=== PATIENT | female | born 1940 | race Hispanic/Latino ===

== ENCOUNTER → 2017-10-02 | Outpatient (CLI) | payer MEDICARE ==
[~2017-10-02] MED LIST: COUMADIN3 MG PO; FUROSEMIDE40 MG PO; IPRATROPIU0.2 MG/1 M NEB; LIDODERM PATCH1 EA; NITROSTAT0.4 MG SL; NORCO 7.5-3251 EACH PO; PAXIL10 MG PO; PENTOXIFYLLINE400 MG PO; POTASSIUM CHLO20 ME1 PO; SINGULAIR5 MG PO; TESSALON PERLE100 M1; TOVIAZ8 MG PO; ULTRAM50 MG PO; Z.0.BENICAR HCT 201 PO; Z.0.GLUCOSAMINE1000; Z.0.HYDRALAZINE HCL5 PO; Z.0.NEXIUM40 MG PO; Z.0.NITROGLYCERIN0.4 SL; Z.0.PLAVIX75 MG PO; Z.0.SINGULAIR10 MG PO; Z.0.TOPROL XL100 MG PO; Z.0.VESICARE10 MG PO; Z.0.VICODIN 5-5001 E PO; Z.0.ZOCOR40 MG PO; Z.1.LEVOTHYROXINE100 PO; [UNRECOGNIZED DRUG - OTHER] PO
[2017-10-02 13:12] LABS: BASOPHILS # (AUTO) 0.1 (0.0-0.1); BASOPHILS % 0.5 % (0.0-1.0); EOSINOPHILS # (AUTO) 0.6 (0.0-0.4); EOSINOPHILS % 5.8 % (0.0-6.0); HEMATOCRIT 37.4 % (34.2-44.1); HEMOGLOBIN 11.6 g/dL (12.0-16.0); LYMPHOCYTES # (AUTO) 2.5 (1.0-3.2); LYMPHOCYTES % 23.3 % (18.0-39.1); MEAN CORPUSCULAR HEMOGLOBIN 27.2 pg (28-32); MEAN CORPUSCULAR VOLUME 87.6 fL (81-99); MONOCYTES # (AUTO) 0.6 (0.2-0.8); MONOCYTES % 5.2 % (4.4-11.3); NEUTROPHILS # (AUTO) 7.1 (2.1-6.9); NEUTROPHILS % 64.7 % (38.7-80.0); PLATELET COUNT 192 x10e3/uL (140-360); RED BLOOD COUNT 4.27 x10e6/uL (3.6-5.1)
[2017-10-02 14:04] LABS: ERYTHROCYTE SEDIMENTATION RATE 32 mm/hr (0-20)
== END ==
LOC: LAB 12:45
PROVIDERS: ATTEND Specialist
DX: S72.92XA Unspecified fracture of left femur, initial encounter for closed fracture (principal)
CPT/HCPCS: 36415; 85025; 85651; 86140

== ENCOUNTER → 2017-10-17 | Day surgery (SDC) | payer MEDICARE ==
[2017-10-13 12:26] LABS: BASOPHILS # (AUTO) 0.1 (0.0-0.1); BASOPHILS % 0.5 % (0.0-1.0); EOSINOPHILS # (AUTO) 0.9 (0.0-0.4); EOSINOPHILS % 8.6 % (0.0-6.0); HEMATOCRIT 36.3 % (34.2-44.1); HEMOGLOBIN 11.4 g/dL (12.0-16.0); LYMPHOCYTES # (AUTO) 2.7 (1.0-3.2); LYMPHOCYTES % 26.2 % (18.0-39.1); MEAN CORPUSCULAR HEMOGLOBIN 27.5 pg (28-32); MEAN CORPUSCULAR HGB CONC 31.4 g/dL (31-35); MEAN CORPUSCULAR VOLUME 87.7 fL (81-99); MONOCYTES # (AUTO) 0.6 (0.2-0.8); MONOCYTES % 6.1 % (4.4-11.3); NEUTROPHILS # (AUTO) 6.1 (2.1-6.9); NEUTROPHILS % 58.3 % (38.7-80.0); PLATELET COUNT 187 x10e3/uL (140-360); RED BLOOD COUNT 4.14 x10e6/uL (3.6-5.1)
--- NOTE | 2017-10-13 12:52 | Diagnostic Imaging Report ---
PROCEDURE: Frontal and lateral views of the chest. COMPARISON: Chest 2 views 02/12/2014. INDICATIONS: PREOPERATIVE CHEST XRAY FOR HIP SURGERY FINDINGS: Lines/tubes: Left chest cardiac device with leads projecting over the expected regions of the right atrium and ventricle. Lungs: The lungs are well inflated and clear. There is no evidence of pneumonia or pulmonary edema. Metallic coils are present in the right midlung region. Pleura: There is no pleural effusion or pneumothorax. Heart and mediastinum: The heart and the mediastinum are normal. Bones: No acute bony abnormality. Median sternotomy wires. IMPRESSION: No acute radiographic abnormality. Dictated by: Arturo Barillas M.D. on 10/13/2017 at 13:01 Electronically approved by: Arturo Barillas M.D. on 10/13/2017 at 13:01
[~2017-10-17] MED LIST changes: +ALBUTEROL0.63 MG/3 NEB; +ASPIRIN325 MG PO; +ATORVASTATIN CA10 MG PO; +BENADRYL25 M1 PO; +BUPIVACAINE HCL 0.5% 10ML MPF VIAL INJ ONE; +FENTANYL CITRATE/PF 100MCG/2 ML INJ ONE; +IOPAMIDOL 200 MG/ML 20 ML VIAL IT ONE; +LEVSIN0.125 MG PO; +LIDOCAINE HCL 1% LOCAL INJ 20 ML VIAL ONE; +LIDOCAINE HCL 2% LOCAL INJ 5 ML SDV VIAL INJ ONE; +MELOXICAM7.5 MG PO; +MIDAZOLAM HCL 2 MG/2 ML VIAL ONE; +MS CONTIN30 MG PO; +NORCO 10-325 T1 EACH PO; +OXYBUTYNIN CHLOR5 M1 PO; +PROPOFOL IV EMULSION 10 MG/ML 20 ML VIAL ONE; +SINGULAIR10 MG PO; +TRIAMCINOLONE ACET 40 MG/ML VIAL ONE; +VESICARE5 MG PO
--- OUTSIDE RECORDS SUMMARY | 2017-10-17 05:55 | XMS REPORT ---
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 Allergies, Adverse Reactions, Alerts This patient has no known allergies or adverse reactions. Medications This patient has no known medications. Results Test Description Test Time Test Comments Text Results Atomic Results Result Comments CHEST 2 VIEWS [place] [address] Patient Name: CONNOR ROBERTSON MR #: [id number] : 1940 Age/Sex: 77/F Req #: [id number] Adm Physician: Ordered by: CHER JOSÉ MD Report #: [id number] Location: OR Room/Bed: Procedure: [id number] DX/CHEST 2 VIEWS Exam Date: 10/13/17 Exam Time: 1155 REPORT STATUS: Signed PROCEDURE: Frontal and lateral views of the chest. COMPARISON: Chest 2 views 02/12/2014. INDICATIONS: PREOPERATIVE CHEST XRAY FOR HIP SURGERY FINDINGS: Lines/tubes: Left chest cardiac device with leads projecting over the expected regions of the right atrium and ventricle. Lungs: The lungs are well inflated and clear. There is no evidence of pneumonia or pulmonary edema. Metallic coils are present in the right midlung region. Pleura: There is no pleural effusion or pneumothorax. Heart and mediastinum: The heart and the mediastinum are normal. Bones: No acute bony abnormality. Median sternotomy wires. IMPRESSION: No acute radiographic abnormality. Dictated by: Debby Machado M.D. on 10/13/2017 at 13:01 Electronically approved by: Debby Machado M.D. on 10/13/2017 at 13:01 Dictated By: DEBBY MACHADO MD [id number] COPY TO: CHER JOSÉ MD
--- OUTSIDE RECORDS SUMMARY | 2017-10-17 05:55 | XMS REPORT | Clinical Summary ---
Author Author [facility] Organization [facility] Address Unknown Phone Unavailable Care Team Providers Care Civil Engineering Director Name Role Phone AttarMatthew MD PCP Allergies Active Allergy Reactions Severity Noted Date Comments Ponce Inhibitors Anaphylaxis High 11/22/2016 Clindamycin GI Intolerance 11/22/2016 nousea Fenofibrate Itching 11/22/2016 Terbinafine Itching 11/22/2016 Current Medications Prescription Sig. Disp. Refills Start End Date Status Date hydrALAZINE (APRESOLINE) Take 25 mg by mouth 3 Active 25 MG tablet (three) times a day. esomeprazole (NexIUM) 40 Take 40 mg by mouth 2 Active MG capsule (two) times a day. levothyroxine (SYNTHROID, Take 112 mcg by mouth Active LEVOXYL) 112 mcg tablet every morning. montelukast (SINGULAIR) Take 10 mg by mouth Active 10 mg tablet nightly. solifenacin (VESICARE) 10 Take 10 mg by mouth Active MG tablet daily. oxybutynin (DITROPAN) 5 Take 5 mg by mouth daily. Active MG tablet atorvastatin (LIPITOR) 10 Take 10 mg by mouth Active MG tablet daily. meloxicam (MOBIC) 15 mg Take 15 mg by mouth Active tablet daily. albuterol sulfate Take 2.5 mg by Active (PROVENTIL) 2.5 mg/0.5 mL nebulization 3 (three) solution for nebulization times a day as needed. morPHINE (MS CONTIN) 30 Take 30 mg by mouth 2 Active MG 12 hr tablet (two) times a day. HYDROcodone-acetaminophen Take 1 tablet by mouth Active (NORCO) 10-325 mg per every 6 (six) hours as tablet needed for moderate pain. hyoscyamine sulfate 0.125 Take 1 tablet by mouth Active mg tablet,disintegrating daily as needed. diphenhydrAMINE (BENADRYL Take 50 mg by mouth Active ALLERGY) 25 mg tablet nightly as needed for allergies or sleep. metoprolol tartrate Take 25 mg by mouth 2 Active (LOPRESSOR) 25 mg tablet (two) times a day. gabapentin (NEURONTIN) Take 100 mg by mouth 3 Active 100 mg capsule (three) times a day. traZODone (DESYREL) 50 MG Take 50 mg by mouth Active tablet nightly as needed for sleep. lactulose 10 gram/15 mL Take 20 g by mouth 3 Active (15 mL) solution (three) times a day. potassium chloride Take 20 mEq by mouth Active (K-DUR) 20 MEQ CR tablet daily. docusate sodium (COLACE) Take 100 mg by mouth 3 Active 100 MG capsule (three) times a day. metoprolol succinate XL Take 25 mg by mouth 2 11/24/19 Discontin (TOPROL-XL) 25 mg 24 hr (two) times a day. 17 ued tablet docusate sodium (COLACE) Take 1 capsule (100 mg 60 capsule 0 11/25/19 12/25/19 100 MG capsule total) by mouth 2 (two) 17 17 times a day for 30 days. lactulose 20 gram/30 mL Take 30 mL (20 g total) 2700 mL 0 11/25/19 12/25/19 solution by mouth 3 (three) times 17 17 a day for 30 days. polyethylene glycol Take 17 g by mouth daily 30 packet 0 11/25/19 (MIRALAX) 17 gram packet for 30 days. 17 17 diphenhydramine-zinc Apply topically 2 (two) 28.4 g 0 01/07/2002/05 acetate 2-0.1 % cream times a day as needed for 17 17 itching for up to 30 days. aspirin (ECOTRIN) 81 MG Take 1 tablet (81 mg 30 tablet 3 01/07/20 enteric coated tablet total) by mouth daily for 17 17 30 days. minocycline (MINOCIN) 100 Take 1 capsule (100 mg 20 capsule 0 01/17/20 MG capsule total) by mouth 2 (two) 17 17 times a day for 10 days. Active Problems Problem Noted Date Cellulitis of left lower extremity 01/02/2017 Essential hypertension 01/02/2017 PVD (peripheral vascular disease) 01/02/2017 Constipation 11/24/2016 Hyponatremia 11/23/2016 Constipation 11/23/2016 CAD (coronary artery disease) 11/23/2016 Abdominal pain 11/23/2016 Encounters Date Type Specialty Care Team Description 01/10/2017 Telephone Cardiology Domonique Sellers 01/01/2017 Hospital Cardiology Dilcia Sears MD Cellulitis of left lower - Encounter Manny Esposito O. Sr., extremity (Primary 01/06/2017 MD Dx);Multiple contusions;Coronary artery disease involving [place] coronary artery of [place] heart without angina pectoris;Essential hypertension;PVD (peripheral vascular disease) 11/22/2016 Emergency General Internal Medicine Elzbieta Cavazos MD Hyponatremia (Primary - Manny Esposito O. Sr., Dx);Left lower quadrant 11/24/2016 MD pain;Hip pain, acute, left;Left upper quadrant pain after 10/16/2016 Social History Tobacco Use Types Packs/Day Years Used Date Never Smoker Alcohol Use Drinks/Week oz/Week Comments No Sex Assigned at Date Recorded Not on file Last Filed Vital Signs Vital Sign Reading Time Taken Blood Pressure 116/54 01/06/2017 7:51 AM CDT Pulse 62 01/06/2017 2:21 PM CDT Temperature 36.1 C (96.9 F) 01/06/2017 7:51 AM CDT Respiratory Rate 17 01/06/2017 2:21 PM CDT Oxygen Saturation 94% 01/06/2017 9:00 AM CDT Inhaled Oxygen - - Concentration Weight 87.6 kg (193 lb 1.6 oz) 01/06/2017 4:25 AM CDT Height 157.5 cm (5' 2") 01/02/2017 5:00 AM CDT Body Mass Index 35.32 01/06/2017 4:25 AM CDT Plan of Treatment Health Maintenance Due Date Last Done Comments MAMMOGRAM 1992 ZOSTER VACCINE 2002 PNEUMOCOCCAL 2007 POLYSACCHARIDE VACCINE AGE 65 AND OVER PNEUMOCOCCAL-13 2007 INFLUENZA VACCINE 04/11/2017 Results * CBC with platelet and differential (01/06/2017 5:51 AM) Only the most recent of 7 results within the time period is included. Component Value Ref Range WBC 8.93 4.50 - 11.00 k/uL RBC 3.54 (L) 4.20 - 5.50 m/uL HGB 10.5 (L) 12.0 - 16.0 g/dL HCT 33.5 (L) 37.0 - 47.0 % MCV 94.6 82.0 - 100.0 fL MCH 29.7 27.0 - 34.0 pg MCHC 31.3 31.0 - 37.0 g/dL RDW - SD 51.4 37.0 - 55.0 fL MPV 10.2 8.8 - 13.2 fL Platelet count 200 150 - 400 k/uL Nucleated RBC 0.00 /100 WBC Neutrophils 68.9 39.0 - 69.0 % Lymphocytes 17.1 (L) 25.0 - 45.0 % Monocytes 8.3 0.0 - 10.0 % Eosinophils 4.7 0.0 - 5.0 % Basophils 0.6 0.0 - 1.0 % Immature granulocytes 0.4Comment: "Immature granulocytes" 0.0 - 1.0 % (promyelocytes, myelocytes, metamyelocytes) Specimen Performing Laboratory Blood [facility] DEPARTMENT OF PATHOLOGY AND GENOMIC MEDICINE [address] [place] [id number] * Estimated GFR (01/06/2017 4:00 AM) Only the most recent of 7 results within the time period is included. Component Value Ref Range GFR Non Af Amer 70 mL/min/1.73 m2 GFR Af Amer 85 mL/min/1.73 m2 Comment: Chronic kidney disease: <60 mL/min/1.73m2 Kidney failure: <15 mL/min/1.73m2 The estimated GFR is calculated from the IDMS-traceable Modification of Diet in Renal Disease Equation. The accuracy of the calculation is poor when the creatinine is normal. Calculated values >90 mL/min/1.73m2 are not reported. This equation has not been validated in children (<18 years), women, the elderly (>70 years), or ethnic groups other than Caucasians and Americans. Specimen Performing Laboratory Plasma specimen [facility] DEPARTMENT OF PATHOLOGY AND GENOMIC MEDICINE [address] [place] [id number] * Basic metabolic panel (01/06/2017 4:00 AM) Only the most recent of 6 results within the time period is included. Component Value Ref Range Sodium 133 (L) 135 - 148 mEq/L Potassium 4.3 3.5 - 5.0 mEq/L Chloride 99 98 - 112 mEq/L CO2 22 (L) 24 - 31 mEq/L Anion gap 12 7 - 15 mEq/L Comment: Starting from December , anion gap calculation no longer incorporates potassium. Please note the change. BUN 27 (H) 8 - 23 mg/dL Creatinine 0.8 0.5 - 0.9 mg/dL Glucose 91 65 - 99 mg/dL Calcium 9.2 8.8 - 10.2 mg/dL Specimen Performing Laboratory Plasma specimen [facility] DEPARTMENT OF PATHOLOGY AND GENOMIC MEDICINE [address] [address] * Thyroid stimulating hormone (01/02/2017 4:00 AM) Only the most recent of 2 results within the time period is included. Component Value Ref Range TSH 1.40 0.27 - 4.20 uIU/mL Specimen Performing Laboratory Plasma specimen [facility] DEPARTMENT OF PATHOLOGY AND [address] [address] * T4, free (01/02/2017 4:00 AM) Only the most recent of 2 results within the time period is included. Component Value Ref Range T4, free 1.3 0.9 - 1.7 ng/dL Specimen Performing Laboratory Plasma specimen [facility] DEPARTMENT OF PATHOLOGY AND [address] [address] * Lipid panel (01/02/2017 4:00 AM) Only the most recent of 2 results within the time period is included. Component Value Ref Range Cholesterol 153 <200 mg/dL Triglycerides 69 <150 mg/dL HDL cholesterol 48 >40 mg/dL LDL cholesterol 93Comment: Result obtained by direct LDL <100 mg/dL measurement Lipid panel SeeBelow interpretation Comment: Total Cholesterol (mg/dL) <200 Desirable 200-239 Borderline-high >=240 High Triglycerides (mg/dL) <150 Normal 150-199 Borderline-high 200-499 High >=500 Very high HDL Cholesterol (mg/dL) <40 Low (male) <40 Low (female) LDL Cholesterol (mg/dL) <100 Optimal 100-129 Near or above optimal 130-159 Borderline-high 160-189 High >=190 Very high Risk Catergories that modify LDL goals. Risk Catergories LDL goal (mg/dL) CHD and CHD risk equivalent <100 (10-year risk >20%) Multiple (2+) risk factors <130 (10-year risk=<20%) 0-1 risk factors <160 (<10-year risk) Defining levels of lipids in metabolic syndrome Triglycerides >=150 mg/dL HDL Cholesterol Men <40 mg/dL Women <40 mg/dL Non-HDL cholesterol is a second target for therapy in persons with high triglycerides (>=200 mg/dL) Specimen Performing Laboratory Plasma specimen [facility] DEPARTMENT OF PATHOLOGY AND GENOMIC MEDICINE [address] [place] [address] * CT Pelvis Wo Contrast (01/02/2017 12:09 AM) Specimen Performing Laboratory [facility] [address] [place] [address] PELVIS WO CONTRAST CLINICAL HISTORY:left hip pain TECHNIQUE: Multidetector CT examination of the pelvis was performed following without contrast with multiplanar reconstructions. CT imaging was performed with iterative reconstruction technique and/or automated exposure control to reduce radiation dose. COMPARISON:Left hip radiographs performed on 01/01/2017. FINDINGS: There is no acute fracture or dislocation. The bones are demineralized. There is severe left and moderate right hip osteoarthrosis. There are degenerative changes of the pubic symphysis, both sacroiliac joints, and the lower lumbar spine. There is transitional anatomy of the lumbosacral junction. The partially visualized intra-abdominal and pelvic contents are without acute abnormality. The uterus is not visualized, compatible with prior hysterectomy. There is calcified atherosclerotic disease of the abdominal aorta and iliac arteries. There are bilateral gluteal injection granulomas. IMPRESSION: No acute fracture or dislocation. [id number] Procedure Note Interface, Radiology Results Incoming - 01/02/2017 1:[address] PELVIS WO CONTRAST CLINICAL HISTORY: left hip pain TECHNIQUE: Multidetector CT examination of the pelvis was performed following without contrast with multiplanar reconstructions. CT imaging was performed with iterative reconstruction technique and/or automated exposure control to reduce radiation dose. COMPARISON: Left hip radiographs performed on 01/01/2017. FINDINGS: There is no acute fracture or dislocation. The bones are demineralized. There is severe left and moderate right hip osteoarthrosis. There are degenerative changes of the pubic symphysis, both sacroiliac joints, and the lower lumbar spine. There is transitional anatomy of the lumbosacral junction. The partially visualized intra-abdominal and pelvic contents are without acute abnormality. The uterus is not visualized, compatible with prior hysterectomy. There is calcified atherosclerotic disease of the abdominal aorta and iliac arteries. There are bilateral gluteal injection granulomas. IMPRESSION: No acute fracture or dislocation. [id number] * CT Cervical Spine Wo Contrast (01/01/2017 11:53 PM) Specimen Performing Laboratory [facility] [address] [place] [address] Narrative EXAMINATION:CT CERVICAL SPINE WO CONTRAST CLINICAL HISTORY:fallpaintrauma COMPARISON:None. TECHNIQUE: Axial helical CT images throughout theCERVICAL spine were performed without contrast. Sagittal and coronal reformatted images were generated. CT scans are performed using radiation dose reduction techniques. Technical factors are evaluated and adjusted to ensure appropriate moderation of exposure. Automated dose management technology is applied to adjust radiation exposure while achieving a highly diagnostic quality image. FINDINGS: Sagittal image reconstructions demonstrate preservation of the cervical lordosis. There is subtle anterior degenerative subluxation at C3-4 and C4-5. Axial images demonstrate no definite evidence of acute fracture or hematoma. There is spondylotic foraminal stenosis at C3-4 bilaterally, C4-5 bilaterally worse on the left at C5-6, bilaterally worse on the left at C6-7 bilaterally slightly more on the left. There is no significant central canal stenosis. 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 No definite acute fracture [id number] Procedure Note Interface, Radiology Results - 01/02/2017 12:02 AM CDT EXAMINATION: CT CERVICAL SPINE WO CONTRAST CLINICAL HISTORY: fall pain trauma COMPARISON: None. TECHNIQUE: Axial helical CT images throughout the CERVICAL spine were performed without contrast. Sagittal and coronal reformatted images were generated. CT scans are performed using radiation dose reduction techniques. Technical factors are evaluated and adjusted to ensure appropriate moderation of exposure. Automated dose management technology is applied to adjust radiation exposure while achieving a highly diagnostic quality image. FINDINGS: Sagittal image reconstructions demonstrate preservation of the cervical lordosis. There is subtle anterior degenerative subluxation at C3-4 and C4-5. Axial images demonstrate no definite evidence of acute fracture or hematoma. There is spondylotic foraminal stenosis at C3-4 bilaterally, C4-5 bilaterally worse on the left at C5-6, bilaterally worse on the left at C6-7 bilaterally slightly more on the left. There is no significant central canal stenosis. 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 No definite acute fracture [id number] * CT Head Wo Contrast (01/01/2017 11:52 PM) Specimen Performing Laboratory [facility] [address] [place] [address] Narrative Procedure:CT HEAD WO CONTRAST REFERRING PHYSICIAN:DILCIA SEARS MD HISTORY:fallheadache trauma COMPARISON: None TECHNIQUE: Axial images were obtained of the head without intravenous contrast. All CT scan performed using radiation dose reduction techniques. Technical factors are evaluated and adjusted to ensure appropriate moderation of exposure. Automated dose management technology is applied to adjust the radiation dose to minimize expose while achieving a diagnostic quality image. FINDINGS: Cortical atrophy is noted. Carballo-white matter differentiation is maintained. The ventricular system is symmetric and midline. Mild chronic ischemic small vessel white matter disease is seen. There is no evidence of hemorrhage. Nointra-axial or extra-axial lesion is seen. The visualized portion of the orbits, paranasal sinuses and mastoid air cells are unremarkable. The calvarium is intact. Scattered atherosclerotic calcifications of the intracranial vessel are noted IMPRESSION: No CT evidence of acute intracranial abnormality or hemorrhage. [id number] Procedure Note Interface, Radiology Results Incoming - 01/02/2017 12:02 AM CDT Procedure:CT HEAD WO CONTRAST REFERRING PHYSICIAN:DILCIA SEARS MD HISTORY: fall headache trauma COMPARISON: None TECHNIQUE: Axial images were obtained of the head without intravenous contrast. All CT scan performed using radiation dose reduction techniques. Technical factors are evaluated and adjusted to ensure appropriate moderation of exposure. Automated dose management technology is applied to adjust the radiation dose to minimize expose while achieving a diagnostic quality image. FINDINGS: Cortical atrophy is noted. [place]-white matter differentiation is maintained. The ventricular system is symmetric and midline. Mild chronic ischemic small vessel white matter disease is seen. There is no evidence of hemorrhage. No intra-axial or extra-axial lesion is seen. The visualized portion of the orbits, paranasal sinuses and mastoid air cells are unremarkable. The calvarium is intact. Scattered atherosclerotic calcifications of the intracranial vessel are noted IMPRESSION: No CT evidence of acute intracranial abnormality or hemorrhage. [id number] * XR Tibia Fibula 2 Vw Left (01/01/2017 11:44 PM) Specimen Performing [facility] [address] [place] [address] Narrative Examination:XR TIBIA FIBULA 2 VW LEFT Clinical History: trauma fall Comparison: None. Findings: 3 views of the left tibia and fibula are obtained. No acute fracture or dislocation is seen. There is mild chondrocalcinosis of the left knee with mild joint space narrowing. Soft tissues are unremarkable. Linear lucency at the medial malleolus is noted but may represent overlying shadow. IMPRESSION: 1. Linear lucency at the medial malleolus of the distal tibia may represent overlying shadow or artifact. However there is suspicion for injury left ankle then dedicated left ankle radiographs are recommended. [id number] Procedure Note Interface, Radiology Results Incoming - 01/01/2017 11:52 PM CDT Examination: XR TIBIA FIBULA 2 VW LEFT Clinical History: trauma fall Comparison: None. Findings: 3 views of the left tibia and fibula are obtained. No acute fracture or dislocation is seen. There is mild chondrocalcinosis of the left knee with mild joint space narrowing. Soft tissues are unremarkable. Linear lucency at the medial malleolus is noted but may represent overlying shadow. IMPRESSION: 1. Linear lucency at the medial malleolus of the distal tibia may represent overlying shadow or artifact. However there is suspicion for injury left ankle then dedicated left ankle radiographs are recommended. [id number] * XR Pelvis 1 Or 2 Vw (01/01/2017 11:44 PM) Only the most recent of 2 results within the time period is included. Specimen Performing Laboratory [facility] [address] [place] [address] Narrative Examination:XR PELVIS 1 OR 2 VW Clinical History: trauma fall Comparison: None. Findings: Single frontal view of the pelvis is obtained. There is severe joint space narrowing of the left hip. No acute fracture or dislocation is seen. The pelvic ring is intact. IMPRESSION: 1. No acute abnormality identified in the pelvis. [id number] Procedure Note Interface, Radiology Results Incoming - 01/01/2017 11:57 PM CDT Examination: XR PELVIS 1 OR 2 VW Clinical History: trauma fall Comparison: None. Findings: Single frontal view of the pelvis is obtained. There is severe joint space narrowing of the left hip. No acute fracture or dislocation is seen. The pelvic ring is intact. IMPRESSION: 1. No acute abnormality identified in the pelvis. [id number] * XR Lumbar Spine 2 Or 3 Vw (01/01/2017 11:43 PM) Specimen Performing Laboratory [facility] [id number] [place] [address] Narrative EXAMINATION:XR LUMBAR SPINE 2 OR 3 VW CLINICAL HISTORY:trauma fall COMPARISON:None. IMPRESSION: There are 5 nonrib-bearing lumbar vertebrae with mild levo rotoscoliosis. There is sacralization of L5 on the left. There is degenerative disc space narrowing at L3-4 and L4-5 with grade 1 degenerative spondylolisthesis. There is degenerative disc space narrowing at T12-L1 with intradiscal vacuum cleft and sclerotic changes of the vertebral endplates. There is no definite compression fracture. There are degenerative changes of the left hip. [id number] Procedure Note Interface, Radiology Results Incoming - 01/01/2017 11:51 PM CDT EXAMINATION: XR LUMBAR SPINE 2 OR 3 VW CLINICAL HISTORY: trauma fall COMPARISON: None. IMPRESSION: There are 5 nonrib-bearing lumbar vertebrae with mild levo rotoscoliosis. There is sacralization of L5 on the left. There is degenerative disc space narrowing at L3-4 and L4-5 with grade 1 degenerative spondylolisthesis. There is degenerative disc space narrowing at T12-L1 with intradiscal vacuum cleft and sclerotic changes of the vertebral endplates. There is no definite compression fracture. There are degenerative changes of the left hip. [id number] * XR Hip 2-3 View Left (01/01/2017 11:43 PM) Only the most recent of 2 results within the time period is included. Specimen Performing Laboratory [facility] [id number] [place] [address] Narrative Examination:XR HIP 2-3 VIEWS LEFT Clinical History: fallpain Comparison: None. Findings: 2 views of the left hip are obtained. Severe joint space narrowing of the left hip is noted with overhanging osteophyte at the femoral head. There is questionable shortening of the femoral neck on the frontal view. IMPRESSION: 1. Slight shortening of the femoral neck on the frontal view. This may represent a slightly impacted femoral neck fracture. If indicated then CT of the left hip is recommended for further evaluation. 2. Severe degenerative joint disease of the left hip. [id number] Procedure Note Interface, Radiology Results Incoming - 01/01/2017 11:49 PM CDT Examination: XR HIP 2-3 VIEWS LEFT Clinical History: fall pain Comparison: None. Findings: 2 views of the left hip are obtained. Severe joint space narrowing of the left hip is noted with overhanging osteophyte at the femoral head. There is questionable shortening of the femoral neck on the frontal view. IMPRESSION: 1. Slight shortening of the femoral neck on the frontal view. This may represent a slightly impacted femoral neck fracture. If indicated then CT of the left hip is recommended for further evaluation. 2. Severe degenerative joint disease of the left hip. [id number] * XR Tibia Fibula 2 Vw Right (01/01/2017 11:42 PM) Specimen Performing Laboratory [facility] [address] [place] [id number] Narrative Examination:XR TIBIA FIBULA 2 VW RIGHT Clinical History: trauma fall Comparison: None. Findings: 2 views of the right tibia and fibula are obtained. No acute fracture or dislocation is seen. The joint spaces are within normal limits. Soft tissues are unremarkable. IMPRESSION: 1. No acute abnormality identified in the right tibia and fibula. [id number] Procedure Note Interface, Radiology Results Incoming - 01/01/2017 11:47 PM CDT Examination: XR TIBIA FIBULA 2 VW RIGHT Clinical History: trauma fall Comparison: None. Findings: 2 views of the right tibia and fibula are obtained. No acute fracture or dislocation is seen. The joint spaces are within normal limits. Soft tissues are unremarkable. IMPRESSION: 1. No acute abnormality identified in the right tibia and fibula. [id number] * Partial thromboplastin time, activated (11/24/2016 5:30 AM) Component Value Ref Range PTT 28.0 23.0 - 36.0 sec Comment: PTT therapeutic range for unfractionated heparin is 61.0-112.0 seconds which corresponds to Anti-Xa 0.3-0.7 U/ml. Specimen Performing Laboratory Blood [facility] DEPARTMENT OF PATHOLOGY AND GENOMIC MEDICINE [address] [place] [id number] * Prothrombin time with INR (11/24/2016 5:30 AM) Component Value Ref Range Prothrombin time 13.4 12.0 - 15.0 sec INR 1.0 Comment: The International Normalized Ratio (INR) is a therapeutic monitoring tool for patients who are stable on oral anticoagulant therapy. An INR of 2.0-3.0 is suggested for deep vein thrombosis/pulmonary embolism. Specimen Performing Laboratory Blood [facility] DEPARTMENT OF PATHOLOGY AND [facility] MEDICINE [address] [address] * T3 (11/24/2016 5:30 AM) Component Value Ref Range T3 77 (L) 80 - 200 ng/dL Specimen Performing Laboratory Plasma specimen [facility] [place] [address] * Magnesium level (11/24/2016 5:30 AM) Component Value Ref Range Magnesium 2.1 1.6 - 2.4 mg/dL Specimen Performing Laboratory Plasma specimen [facility] [place] [address] * PV duplex arterial lower extremity (11/23/2016 9:00 AM) Specimen Performing Laboratory [facility] [address] [place] [address] Narrative Vascular Ultrasound Laboratory Lower Extremity Arterial Duplex Report [address] [place] [address] Pat.Name:CONNOR MORENO Pat.ID:[id number] .Date: 11/23/2016 Refer.MD:PHYSICIAN, EMERGENCY, MD Exam Time: 8:27:00 AMStudy Type:LE Arterial DOBAge:1940,76YSex: FEMALE Sonogrphr: Jose Shabazz. Stat.:[facility] [place] - 4: [address]20 Echo Event ID:[id number] Order ID:[id number] Reason for Study:Left groin and left lower quadrant pain x 1 week. History of A-Fib, CAD, hypertension, hyperlipidemia and PAD. Status post pacemaker placement and valve replacement. Race:C SUMMARY: DUPLEX SCAN OBSERVATIONS: RIGHT: There is smooth intimal lining in the common femoral artery and profunda femoris artery. There is scattered hard plaque in the superficial femoral, popliteal, posterior tibial, peroneal and anterior tibial arteries. Colorflow and triphasic Doppler signals are present. LEFT: There is intimal thickening in the common femoral artery and profunda femoris artery. There is scattered hard plaque in the superficial femoral, popliteal, posterior tibial, peroneal and anterior tibial arteries. Soft plaque is noted in the distal popliteal artery with absent colorflow and Doppler signals are absent. Reconstituting flow is seen in the proximal posterior tibial artery with a collateral noted.Biphasic Doppler signals are noted in the posterior tibial, peroneal and proximal to mid anterior tibial arteries. Monophasic Doppler signals are noted in the distal anterior tibial artery. ANKLE/BRACHIAL INDEX: RIGHTLEFT Brachial Artery Pressure IV pfPo004 mmHg [id number] PT150 mmHg91 mmHg YANET DP0.740.54 YANET PT0.960.58 TOE/BRACHIAL INDEX: Great Toe81 mmHg57 mmHg TBI0.52 0.37 PRELIMINARY FINDINGS: 1. Occlusion of the left distal popliteal artery. Reconstituting flow is seen in the proximal posterior tibial artery with a collateral noted. 2. Biphasic Doppler signals are noted in the posterior tibial, peroneal and proximal to mid anterior tibial arteries. 3. Monophasic Doppler signals are left distal anterior tibial artery. 4. Right ankle/brachial index is in normal range on PT and mild range on DP. 5. Left ankle/brachial index is in moderate range. 6. Toe/brachial indices are in mild range on the right and moderate to severe range on the left. PHYSICIAN INTERPRETATION: 1.Duplex arterial scan of both lower extremities scattered calcified plaque. There is occlusion of the left popliteal 2.Ankle/brachial index is normal right and moderate left. 3.Toe brachial index mild right and moderate left. MEASUREMENTS: DOPPLER Right EIA Dist EIA Dist PSV 161 cm/s Left EIA Dist EIA Dist PSV 134 cm/s Right DULSER Dist DULSER Dist PSV 119 cm/s Left DULSER Dist DULSER Dist PSV 144 cm/s Right Profunda Profunda PSV83 cm/s Left Profunda Profunda PSV 132 cm/s Right SFA Prox SFA Prox PSV 124 cm/s Left SFA Prox SFA Prox PSV 138 cm/s Right SFA Mid SFA Mid UDI337 cm/s Left SFA Mid SFA Mid ITK136 cm/s Right SFA Dist SFA Dist PSV96 cm/s Left SFA Dist SFA Dist PSV 107 cm/s Right Pop Prox Pop Prox PSV73 cm/s Left Pop Prox Pop Prox PSV85 cm/s Left Pop Mid Pop Mid PSV 43 cm/s Right Pop Dist Pop Dist PSV87 cm/s Left Pop Dist Pop Dist PSV 0 cm/s Right EEG TECHNICIAN Prox EEG TECHNICIAN Prox PSV68 cm/s Left EEG TECHNICIAN Prox EEG TECHNICIAN Prox PSV36 cm/s Right EEG TECHNICIAN Distal EEG TECHNICIAN Distal PSV45 cm/s Left EEG TECHNICIAN Distal EEG TECHNICIAN Distal PSV29 cm/s Left Peroneal Prox Peroneal Prox P15 cm/s Left Peroneal Mid Peroneal Mid PS16 cm/s Right Peroneal Dist Peroneal Dist P48 cm/s Right EB Prox EB Prox PSV45 cm/s Left EB Prox EB Prox PSV26 cm/s Left EB Mid EB Mid PSV 22 cm/s Right EB Distal EB Distal PSV73 cm/s Left EB Distal EB Distal PSV18 cm/s Left EB Dist 1 EB Dist 1 PSV13 cm/s Signed 11/23/2016 11:53 PM Anjum Bonilla MD Procedure Note Interface, Radiology Results In - 11/23/2016 11:54 PM CDT Vascular Ultrasound Laboratory Lower Extremity Arterial Duplex Report [id number] [place] [address] Pat.Name: CONNOR MORENO Pat.ID: [id number] .Date: 11/23/2016 Refer.MD: PHYSICIAN, EMERGENCY, Exam Time: 8:27:00 AM Study Type:LE Arterial Age: 14 1940,76Y Sex: FEMALE Sonogrphr: Randi Piña RVT Pat. Stat.:Outpatient [facility]: [facility] Vol: [place], CPT - 4: 53954 Echo Event ID:[id number] Order ID: [id number] Reason for Study:Left groin and left lower quadrant pain x 1 week. History of A-Fib, CAD, hypertension, hyperlipidemia and PAD. Status post pacemaker placement and valve replacement. Race: C SUMMARY: DUPLEX SCAN OBSERVATIONS: RIGHT: There is smooth intimal lining in the common femoral artery and profunda femoris artery. There is scattered hard plaque in the superficial femoral, popliteal, posterior tibial, peroneal and anterior tibial arteries. Colorflow and triphasic Doppler signals are present. LEFT: There is intimal thickening in the common femoral artery and profunda femoris artery. There is scattered hard plaque in the superficial femoral, popliteal, posterior tibial, peroneal and anterior tibial arteries. Soft plaque is noted in the distal popliteal artery with absent colorflow and Doppler signals are absent. Reconstituting flow is seen in the proximal posterior tibial artery with a collateral noted. Biphasic Doppler signals are noted in the posterior tibial, peroneal and proximal to mid anterior tibial arteries. Monophasic Doppler signals are noted in the distal anterior tibial artery. ANKLE/BRACHIAL INDEX: RIGHT LEFT Brachial Artery Pressure IV mmHg 156 mmHg DP 116 mmHg 84mmHg PT 150 mmHg 91 mmHg YANET DP 0.74 0.54 YANET PT 0.96 0.58 TOE/BRACHIAL INDEX: Great Toe 81 mmHg 57 mmHg TBI 0.52 0.37 PRELIMINARY FINDINGS: 1. Occlusion of the left distal popliteal artery. Reconstituting flow is seen in the proximal posterior tibial artery with a collateral noted. 2. Biphasic Doppler signals are noted in the posterior tibial, peroneal and proximal to mid anterior tibial arteries. 3. Monophasic Doppler signals are left distal anterior tibial artery. 4. Right ankle/brachial index is in normal range on PT and mild range on DP. 5. Left ankle/brachial index is in moderate range. 6. Toe/brachial indices are in mild range on the right and moderate to severe range on the left. PHYSICIAN INTERPRETATION: 1. Duplex arterial scan of both lower extremities scattered calcified plaque. There is occlusion of the left popliteal 2. Ankle/brachial index is normal right and moderate left. 3. Toe brachial index mild right and moderate left. MEASUREMENTS: DOPPLER Right EIA Dist EIA Dist PSV 161 cm/s Left EIA Dist EIA Dist PSV 134 cm/s Right DULSER Dist DULSER Dist PSV 119 cm/s Left DULSER Dist DULSER Dist PSV 144 cm/s Right Profunda Profunda PSV 83 cm/s Left Profunda Profunda PSV 132 cm/s Right SFA Prox SFA Prox PSV 124 cm/s Left SFA Prox SFA Prox PSV 138 cm/s Right SFA Mid SFA Mid PSV 166 cm/s Left SFA Mid SFA Mid PSV 116 cm/s Right SFA Dist SFA Dist PSV 96 cm/s Left SFA Dist SFA Dist PSV 107 cm/s Right Pop Prox Pop Prox PSV 73 cm/s Left Pop Prox Pop Prox PSV 85 cm/s Left Pop Mid Pop Mid PSV 43 cm/s Right Pop Dist Pop Dist PSV 87 cm/s Left Pop Dist Pop Dist PSV 0 cm/s Right EEG TECHNICIAN Prox EEG TECHNICIAN Prox PSV 68 cm/s Left EEG TECHNICIAN Prox EEG TECHNICIAN Prox PSV 36 cm/s Right EEG TECHNICIAN Distal EEG TECHNICIAN Distal PSV 45 cm/s Left EEG TECHNICIAN Distal EEG TECHNICIAN Distal PSV 29 cm/s Left Peroneal Prox Peroneal Prox P 15 cm/s Left Peroneal Mid Peroneal Mid PS 16 cm/s Right Peroneal Dist Peroneal Dist P 48 cm/s Right EB Prox EB Prox PSV 45 cm/s Left EB Prox EB Prox PSV 26 cm/s Left EB Mid EB Mid PSV 22 cm/s Right EB Distal EB Distal PSV 73 cm/s Left EB Distal EB Distal PSV 18 cm/s Left EB Dist 1 EB Dist 1 PSV 13 cm/s Signed 11/23/2016 11:53 PM Anjum Bonilla MD * CT Abdomen Pelvis Wo Contrast (11/23/2016 3:11 AM) Specimen Performing Laboratory [address] [address] [facility] [address] ABDOMEN PELVIS WO CONTRAST CLINICAL INDICATION:llq pain TECHNIQUE: Multidetector CT of the abdomen and pelvis was performed without intravenous administration of iodinated contrast with multiplanar reformats. CT scans are performed using radiation dose reduction techniques (iterative reconstruction and/or automated exposure control). Technical factors are evaluated and adjusted to ensure appropriate moderation of exposure. Automated dose management technology is applied to adjust radiation exposure while achieving a diagnostic quality image. COMPARISON:None. FINDINGS: Lung bases: Partially visualized metallic density at the right lung base. Status post median sternotomy. Liver:Normal. Gallbladder and biliary:The gallbladder is absent. Clips within the gallbladder fossa. Pancreas:Moderately atrophic with fatty replacement. Spleen:Normal. Gastrointestinal:Small hiatal hernia. Prominent fecal material throughout the colon. Few scattered colonic diverticula. Large and small bowel are normal in caliber. Appendix is not visualized. No focal inflammatory changes within the right lower quadrant of the abdomen. Adrenals:Normal. Kidneys and ureters: Bilateral renal cortical thinning. No hydronephrosis. Urinary bladder: Well-distended. Lymph nodes:No enlarged lymph nodes in the abdomen or pelvis. Peritoneum:No ascites or free air. Vascular:Extensive atherosclerotic changes of the abdominal aorta and major branch vessels. Evaluation of vessel lumens is limited due to lack of IV contrast. Reproductive organs:Uterus is absent. Unremarkable adnexae. Abdominal wall: Bilateral gluteal subcutaneous injection granulomas. Bones:Diffuse osteopenia. Advanced degenerative changes of the lumbar spine. Retrolisthesis of L1 on L2, L2 on L3, and L3 on L4. Grade 1 anterolisthesis of L4 on L5 and L5 on S1. Moderate degenerative changes of the left hip. IMPRESSION: 1. Prominent fecal material throughout the colon. 2. Few scattered colonic diverticula, without diverticulitis. 3. Degenerative changes of the lumbosacral spine and left hip. 4. Otherwise negative CT for acute pathology within the abdomen and pelvis. [facility]-[id number] Procedure Note [facility], Radiology Results Incoming - 11/23/2016 3:[address] ABDOMEN PELVIS WO CONTRAST CLINICAL INDICATION: llq pain TECHNIQUE: Multidetector CT of the abdomen and pelvis was performed without intravenous administration of iodinated contrast with multiplanar reformats. CT scans are performed using radiation dose reduction techniques (iterative reconstruction and/or automated exposure control). Technical factors are evaluated and adjusted to ensure appropriate moderation of exposure. Automated dose management technology is applied to adjust radiation exposure while achieving a diagnostic quality image. COMPARISON: None. FINDINGS: Lung bases: Partially visualized metallic density at the right lung base. Status post median sternotomy. Liver: Normal. Gallbladder and biliary: The gallbladder is absent. Clips within the gallbladder fossa. Pancreas: Moderately atrophic with fatty replacement. Spleen: Normal. Gastrointestinal: Small hiatal hernia. Prominent fecal material throughout the colon. Few scattered colonic diverticula. Large and small bowel are normal in caliber. Appendix is not visualized. No focal inflammatory changes within the right lower quadrant of the abdomen. Adrenals: Normal. Kidneys and ureters: Bilateral renal cortical thinning. No hydronephrosis. Urinary bladder: Well-distended. Lymph nodes: No enlarged lymph nodes in the abdomen or pelvis. Peritoneum: No ascites or free air. Vascular: Extensive atherosclerotic changes of the abdominal aorta and major branch vessels. Evaluation of vessel lumens is limited due to lack of IV contrast. Reproductive organs: Uterus is absent. Unremarkable adnexae. Abdominal wall: Bilateral gluteal subcutaneous injection granulomas. Bones: Diffuse osteopenia. Advanced degenerative changes of the lumbar spine. Retrolisthesis of L1 on L2, L2 on L3, and L3 on L4. Grade 1 anterolisthesis of L4 on L5 and L5 on S1. Moderate degenerative changes of the left hip. IMPRESSION: 1. Prominent fecal material throughout the colon. 2. Few scattered colonic diverticula, without diverticulitis. 3. Degenerative changes of the lumbosacral spine and left hip. 4. Otherwise negative CT for acute pathology within the abdomen and pelvis. [facility]-[id number] * Urinalysis screen and microscopy, with reflex to culture (11/23/2016 3:00 AM) Component Value Ref Range Specimen site Clean catch Color, UA Straw Appearance, UA Clear Specific gravity, UA 1.006 1.001 - 1.035 pH, UA 7.0 5.0 - 8.5 Protein, UA Negative Negative Glucose, UA Negative Negative Ketones, UA Negative Negative Bilirubin, UA Negative Negative Blood, UA Negative Negative Nitrite, UA Negative Negative Urobilinogen, UA <2.0 <2.0 Leukocyte esterase, UA Negative Negative Epithelial cells, UA 1 /HPF WBC, UA None seen 0 - 4 /HPF RBC, UA 1 0 - 2 /HPF Bacteria, UA Few None seen Yeast, UA None seen Yeast with pseudohyphae, None seen UA Specimen Performing Laboratory Urine [facility] DEPARTMENT OF PATHOLOGY AND GENOMIC MEDICINE [address] [place] [address] Narrative Specimen must be received in the laboratory within 2 hours of collection. Specimen Source->Urine * Urine culture (11/23/2016 3:00 AM) Component Value Ref Range Urine culture SEE COMMENTComment: Bacteriuria screen negative. Specimen Performing Laboratory [facility] DEPARTMENT OF PATHOLOGY AND [facility] MEDICINE [address] [address] Narrative Specimen must be received in the laboratory within 2 hours of collection. Specimen Source->Urine * Potassium level (11/23/2016 1:26 AM) Only the most recent of 3 results within the time period is included. Component Value Ref Range Potassium SEE COMMENTComment: Footnote--------- 3.5 - 5.0 mEq/L Specimen Performing Laboratory Plasma specimen [facility] DEPARTMENT OF PATHOLOGY AND GENOMIC MEDICINE [address] [address] * Lactic acid level (11/23/2016 1:26 AM) Only the most recent of 3 results within the time period is included. Component Value Ref Range Lactic acid 1.0 0.5 - 2.2 mmol/L Specimen Performing Laboratory Plasma specimen [facility] DEPARTMENT OF PATHOLOGY AND [facility] MEDICINE [address] [address] * ECG 12 lead (11/23/2016 12:09 AM) Component Value Ref Range Ventricular rate 68 Atrial rate 68 IN interval 160 QRSD interval 116 QT interval 434 QTC interval 461 P axis 1 35 QRS axis 1 -12 T wave axis 32 EKG impression Normal sinus rhythm-Incomplete right bundle branch block-Borderline ECG-In automated comparison with ECG of 03-JUN-2015 01:13,-Incomplete right bundle branch block has replaced Right bundle branch block- Specimen Performing Laboratory [facility] MUSE [address] [place] [address] * Whole blood electrolytes & glucose (11/22/2016 10:00 PM) Component Value Ref Range Sodium, whole blood 129 (L) 135 - 148 mEq/L Potassium, whole blood 6.0 (HH) 3.5 - 5.0 mEq/L Comment: EGWB Results called to and read back by Oma Veloz/ABHIJIT (name/location) at 11/22/2016 22:29 (date/time) by CN__. Specimen moderately hemolyzed. Interpret results accordingly. Notified nurse. Nurse will also recollect. Chloride, whole blood 95 (L) 98 - 112 mEq/L CO2 calculated, whole 27 24 - 31 mEq/L blood Glucose, whole blood 100 (H) 65 - 99 mg/dL Specimen Performing Laboratory Blood [facility] [place] [address] Narrative Specimen must be received in the laboratory within 2 hours of collection. Specimen Source->Urine * BUN level (11/22/2016 10:00 PM) Component Value Ref Range BUN 21 8 - 23 mg/dL Specimen Performing Laboratory Plasma specimen [facility] [place] [address] Narrative Specimen must be received in the laboratory within 2 hours of collection. Specimen Source->Urine * Lipase level (11/22/2016 10:00 PM) Component Value Ref Range Lipase 15 13 - 60 U/L Specimen Performing Laboratory Plasma specimen [facility] [place] [address] Narrative Specimen must be received in the laboratory within 2 hours of collection. Specimen Source->Urine * Creatinine level (11/22/2016 10:00 PM) Component Value Ref Range Creatinine 0.8 0.5 - 0.9 mg/dL Specimen Performing Laboratory Plasma specimen [facility] [place] [address] Narrative Specimen must be received in the laboratory within 2 hours of collection. Specimen Source->Urine * Calcium level (11/22/2016 10:00 PM) Component Value Ref Range Calcium 9.1 8.8 - 10.2 mg/dL Specimen Performing Laboratory Plasma specimen [facility] [place] [address] Narrative Specimen must be received in the laboratory within 2 hours of collection. Specimen Source->Urine * Amylase level (11/22/2016 10:00 PM) Component Value Ref Range Amylase 12 (L) 13 - 73 U/L Specimen Performing Laboratory Plasma specimen [facility] [place] [address] Narrative Specimen must be received in the laboratory within 2 hours of collection. Specimen Source->Urine * Hepatic function panel (11/22/2016 10:00 PM) Component Value Ref Range Albumin 4.0 3.5 - 5.0 g/dL Total bilirubin 0.5 0.0 - 1.2 mg/dL Bilirubin direct <0.2 0.0 - 0.3 mg/dL Alkaline phosphatase 86 35 - 104 U/L Protein 7.1 6.3 - 8.3 g/dL Comment: 4.6-7.0 g/dL 1 week 4.4-7.6 g/dL 7 months-1year 5.1-7.3 g/dL 1-2 years 5.6-7.5 g/dL >3 years 6.0-8.0 g/dL 18-150 6.3-8.3 g/dL ALT 21 5 - 50 U/L AST SEE COMMENTComment: Footnote--------- 10 - 35 U/L Specimen Performing Laboratory Plasma specimen [facility] DEPARTMENT OF PATHOLOGY AND GENOMIC MEDICINE [address] [place] [address] Narrative Specimen must be received in the laboratory within 2 hours of collection. Specimen Source->Urine after 10/16/2016 Insurance Payer Benefit Subscriber ID Type Phone Address Plan / Group MEDICARE MEDICARE [id number] Medicare [place], [place] PART A AND B AARP AARP [id number] Commercial SUPPLEMENT Home:
--- NOTE | 2017-10-17 09:32 | Operative Report ---
DATE OF PROCEDURE: October 17, 2017 PREOPERATIVE DIAGNOSIS: Avascular necrosis, left hip. POSTOPERATIVE DIAGNOSIS: Avascular necrosis, left hip. PROCEDURE: Left hip aspiration under fluoroscopy. CARD CLOTHIER: Fermin Biswas PA-C The patient was brought to the operating room for induction of anesthesia. Throughout this case, my PA's assistance was necessary for retraction of soft tissue and positioning of the extremity. This allows for efficient and technically successful execution of the operation and is considered medically necessary. 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 The femoral head is completely gone and superiorly migrated. She is a very poor historian and does not recall any initiating event. She states the pain has been bothering her for only a few months. We ordered inflammatory blood work, which was slightly elevated. For this reason, I plan on an aspiration under fluoroscopy prior to considering a hip replacement. The risks and benefits of the procedure were explained. She stated she understood and wished to proceed. DESCRIPTION OF PROCEDURE: The patient was brought to the procedure room. She was given a MAC anesthetic. Her left hip was prepped and draped in a sterile manner. A preoperative time out was performed. A C-arm image intensifier was used to assist in placing an 18-gauge spinal needle into the remnant of the acetabulum. Multiple attempts were made to aspirate fluid. There was no major fluid pocket. About 1 mL of blood-tinged synovial-appearing fluid was aspirated. This was sent for culture. A Band-Aid was applied. The patient was transported to the recovery room in stable condition. Job#: [id number]
== END | disposition home or self-care (01) ==
LOC: OR 05:52
PROVIDERS: ATTEND Specialist
DX: M87.052 Idiopathic aseptic necrosis of left femur (principal); I10 Essential (primary) hypertension; R06.02 Shortness of breath; Z01.810 Encounter for preprocedural cardiovascular examination; Z01.812 Encounter for preprocedural laboratory examination; Z01.818 Encounter for other preprocedural examination; Z79.82 Long term (current) use of aspirin; Z68.32 Body mass index [BMI] 32.0-32.9, adult; Z95.0 Presence of cardiac pacemaker
CPT/HCPCS: 20610; 36415; 71046; 76000; 85025; 87071; 87075; 87205; 93005; J2001; J2250; J3301; Q9966

== ENCOUNTER 2017-11-27 10:00 | Inpatient (IN) | payer MEDICARE ==
[2017-11-24 14:55] LABS: BASOPHILS % 0.4 % (0.0-1.0); EOSINOPHILS # (AUTO) 0.5 (0.0-0.4); EOSINOPHILS % 5.8 % (0.0-6.0); HEMOGLOBIN 11.9 g/dL (12.0-16.0); LYMPHOCYTES # (AUTO) 2.2 (1.0-3.2); LYMPHOCYTES % 27.2 % (18.0-39.1); MEAN CORPUSCULAR HEMOGLOBIN 27.8 pg (28-32); MEAN CORPUSCULAR HGB CONC 32.2 g/dL (31-35); MEAN CORPUSCULAR VOLUME 86.4 fL (81-99); MONOCYTES # (AUTO) 0.6 (0.2-0.8); MONOCYTES % 7.6 % (4.4-11.3); NEUTROPHILS # (AUTO) 4.7 (2.1-6.9); NEUTROPHILS % 58.7 % (38.7-80.0); PLATELET COUNT 211 x10e3/uL (140-360); RED BLOOD COUNT 4.28 x10e6/uL (3.6-5.1); RED CELL DISTRIBUTION WIDTH 15.7 % (11.7-14.4)
[~2017-11-27] VITALS: Ht 154.9 cm; Wt 90.7 kg
[~2017-11-27 10:00] MED LIST changes: -ASPIRIN325 MG PO; +BACITRACIN 50,000 UNIT VIAL ONE; +BUPIVACAINE 7.5MG/ML /DEXTROSE 82.5MG/ML 2 ML AMP INJ ONE; -BUPIVACAINE HCL 0.5% 10ML MPF VIAL INJ ONE; +CEFAZOLIN SOD 2 GM/D5W 50ML 50 ML IV ONE; +CELECOXIB 200 MG CAP ONE; +DEXAMETHASONE SOD PHOS 10 MG/1 ML VIAL ONE; -FENTANYL CITRATE/PF 100MCG/2 ML INJ ONE; +GABAPENTIN 300 MG CAP ONE; -IOPAMIDOL 200 MG/ML 20 ML VIAL IT ONE; -LIDOCAINE HCL 1% LOCAL INJ 20 ML VIAL ONE; -LIDOCAINE HCL 2% LOCAL INJ 5 ML SDV VIAL INJ ONE; -MIDAZOLAM HCL 2 MG/2 ML VIAL ONE; +MUPIROCIN 2% OINT 22 GM TUBE ONE; -PROPOFOL IV EMULSION 10 MG/ML 20 ML VIAL ONE; +ROPIVACAINE 246.25 MG, EPINEPHRINE HCL 1:1000 0.5 MG, CLONIDINE HCL 0.08 MG, KETOROLAC ... INJ ONE; +TRANEXAMIC ACID 1,000 MG/10 ML ML ONE; -TRIAMCINOLONE ACET 40 MG/ML VIAL ONE
--- OUTSIDE RECORDS SUMMARY | 2017-11-27 10:03 | XMS REPORT | Clinical Summary ---
Author Author [facility] [employer] Organization [employer] Address Unknown Phone Unavailable Care Team Providers Care [place] Worker Name Role Phone AttMatthew rubi MD PCP Allergies Active Allergy Reactions Severity [...] 100 MG capsule (three) times a day. docusate sodium (COLACE) Take 1 capsule (100 [...] Specialty Care Team Description 01/10/2017 Telephone Cardiology Armani Sanon Domonique 01/01/2017 Hospital Cardiology Dilcia Sears MD Cellulitis of left lower - Encounter Manny Esposito Sr., extremity (Primary Dx); 01/06/2017 Multiple contusions; Coronary artery disease involving paimi[place] coronary artery of paimiut heart without angina pectoris; Essential hypertension; PVD (peripheral vascular disease) after 11/26/2016 Social History Tobacco Use Types Packs/Day Years [...] Health Maintenance Due Date Last Done Comments COLONOSCOPY 1992 MAMMOGRAM 1992 ZOSTER VACCINE 2002 PNEUMOCOCCAL 2007 POLYSACCHARIDE VACCINE AGE 65 AND OVER PNEUMOCOCCAL-13 2007 INFLUENZA VACCINE 04/11/2017 Results * CBC with platelet and differential (01/06/2017 5:51 AM) Only the most recent of 5 results within the time period is included. [...] (promyelocytes, myelocytes, metamyelocytes) Specimen Performing Laboratory Blood [facility] DEPARTMENT OF PATHOLOGY AND [facility] MEDICINE [address] [place] [address] * Estimated GFR (01/06/2017 4:00 AM) Only the most recent of 5 results within the time period is included. [...] and Americans. Specimen Performing Laboratory Plasma specimen [facility] DEPARTMENT OF PATHOLOGY AND [address] [address] * Basic metabolic panel (01/06/2017 4:00 AM) Only the most recent of 5 results within the time period is included. [...] 10.2 mg/dL Specimen Performing Laboratory Plasma specimen [facility] DEPARTMENT OF PATHOLOGY AND [address] [address] * Thyroid stimulating hormone (01/02/2017 4:00 AM) Component Value Ref Range TSH 1.40 0.27 - 4.20 uIU/mL Specimen Performing Laboratory Plasma specimen [facility] DEPARTMENT OF PATHOLOGY AND [address] [address] * T4, free (01/02/2017 4:00 AM) Component Value Ref Range T4, free 1.3 0.9 - 1.7 ng/dL Specimen Performing Laboratory Plasma specimen [facility] DEPARTMENT PATHOLOGY AND [address] [address] * Lipid panel (01/02/2017 4:00 AM) Component Value Ref Range Cholesterol 153 <200 [...] (>=200 mg/dL) Specimen Performing Laboratory Plasma specimen [facility] DEPARTMENT OF PATHOLOGY AND GENOMIC MEDICINE [address] [place] [address] * CT Pelvis Wo Contrast (01/02/2017 12:09 AM) Specimen Performing Laboratory [facility] [address] [place] [address] PELVIS WO CONTRAST CLINICAL HISTORY:left [...] granulomas. IMPRESSION: No acute fracture or dislocation. [facility]-[id number] Procedure Note Interface, Radiology Results Incoming - [...] granulomas. IMPRESSION: No acute fracture or dislocation. [facility]-[id number] * CT Cervical Spine Wo Contrast (01/01/2017 11:53 PM) Specimen Performing Laboratory [facility] [address] [place] [address] Narrative EXAMINATION:CT CERVICAL SPINE WO CONTRAST CLINICAL [...] as described above. No definite acute fracture [facility]-[id number] Procedure Note [facility], Radiology Results - 01/02/2017 12:02 AM CDT [...] as described above. No definite acute fracture [facility]-[id number] * CT Head Wo Contrast (01/01/2017 11:52 PM) Specimen Performing Laboratory [facility] [address] [place] [address] Narrative Procedure:CT HEAD WO CONTRAST REFERRING PHYSICIAN:DILCIA [...] evidence of acute intracranial abnormality or hemorrhage. [facility]-[id number] Procedure Note Interface, Radiology Results Incoming - [...] evidence of acute intracranial abnormality or hemorrhage. [facility]-[id number] * XR Tibia Fibula 2 Vw Left (01/01/2017 11:44 PM) Specimen Performing Laboratory [facility] [address] [place] [address] Narrative Examination:XR TIBIA FIBULA 2 VW LEFT [...] then dedicated left ankle radiographs are recommended. [facility]-[id number] Procedure Note Interface, Radiology Results Incoming - [...] then dedicated left ankle radiographs are recommended. [facility]-[id number] * XR Pelvis 1 Or 2 Vw (01/01/2017 11:44 PM) Specimen Performing Laboratory [facility] [address] [place] [address] Narrative Examination:XR PELVIS 1 OR 2 VW Clinical History: trauma fall Comparison: None. Findings: Single frontal view of the pelvis is obtained. There is severe joint space narrowing of the left hip. No acute fracture or dislocation is seen. The pelvic ring is intact. IMPRESSION: 1. No acute abnormality identified in the pelvis. [facility]-[id number] Procedure Note Interface, Radiology Results - 01/01/2017 11:57 PM CDT Examination: XR PELVIS 1 OR 2 VW Clinical History: trauma fall Comparison: None. Findings: Single frontal view of the pelvis is obtained. There is severe joint space narrowing of the left hip. No acute fracture or dislocation is seen. The pelvic ring is intact. IMPRESSION: 1. No acute abnormality identified in the pelvis. [facility]-[id number] * XR Lumbar Spine 2 Or 3 Vw (01/01/2017 11:43 PM) Specimen Performing Laboratory [facility] [address] [place] [address] Narrative EXAMINATION:XR LUMBAR SPINE 2 OR 3 [...] are degenerative changes of the left hip. [facility]-[id number] Procedure Note Interface, Radiology Results 01/01/2017 11:51 PM CDT EXAMINATION: XR LUMBAR [...] are degenerative changes of the left hip. [id number] * XR Hip 2-3 View Left (01/01/2017 11:43 PM) Specimen Performing Laboratory [facility] [address] [place] [address] Narrative Examination:XR HIP 2-3 VIEWS LEFT Clinical [...] degenerative joint disease of the left hip. [facility]-[id number] Procedure Note Interface, Radiology Results 01/01/2017 11:49 PM CDT Examination: XR HIP [...] degenerative joint disease of the left hip. [facility]-[id number] * XR Tibia Fibula 2 Vw Right (01/01/2017 11:42 PM) Specimen Performing Laboratory [facility] [address] [place] [address] Narrative Examination:XR TIBIA FIBULA 2 VW RIGHT Clinical History: trauma fall Comparison: None. Findings: 2 views of the right tibia and fibula are obtained. No acute fracture or dislocation is seen. The joint spaces are within normal limits. Soft tissues are unremarkable. IMPRESSION: 1. No acute abnormality identified in the right tibia and fibula. [facility]-[id number] Procedure Note Interface, Radiology Results Incoming - [...] identified in the right tibia and fibula. [facility]-[id number] after 11/26/2016 Insurance Payer Benefit Subscriber ID Type Phone Address Plan / Group MEDICARE MEDICARE xxxxxxxxxx Medicare [place], [place] PART A AND B AARP AARP xxxxxxxxxxx Commercial SUPPLEMENT Work: [address] [place] [place] [address] Home:
[2017-11-27] MEDS: SODIUM CHLORIDE 0.9% 1000ML 1,000 ML IV SCH ×2 (10:57→19:30)
[2017-11-27] MEDS ORDERED: ONDANSETRON HCL INJ 2 MG/ML VIAL IV PRN (11:00)
[2017-11-27] MEDS ORDERED: ACETAMINOPHEN 650 MG SUPP PR PRN (11:00)
[2017-11-27] MEDS ORDERED: DIPHENHYDRAMINE HCL INJ 50 MG/ML VIAL IM/IV PRN (11:00)
[2017-11-27] MEDS ORDERED: DOCUSATE SODIUM 100 MG CAP PO PRN (11:00)
[2017-11-27] MEDS ORDERED: PROMETHAZINE HCL (IM) 25 MG/ML VIAL IM PRN (11:00)
[2017-11-27] MEDS ORDERED: HYDROCODONE/APAP 5MG-325MG TAB PO PRN (11:00)
[2017-11-27] MEDS ORDERED: KETOROLAC TROMETHAMINE 30 MG/ML VIAL IV PRN (11:00)
[2017-11-27] MEDS: ACETAMINOPHEN 1000 MG/100 ML IV SCH ×2 (12:00→18:19)
[2017-11-27] MEDS ORDERED: FENTANYL CITRATE/PF 100MCG/2 ML INJ ONE ×2 (12:45→18:32)
--- NOTE | 2017-11-27 13:19 | Diagnostic Imaging Report ---
PROCEDURE:X-RAY PELVIS, AP VIEW COMPARISON:None. INDICATIONS:POST OP LEFT HIP SURGERY FINDINGS: Portable supine image obtained at 1244 hrs. Left hip prosthesis has been placed into excellent anatomic alignment without associated fracture. There is air and soft tissue maryann at the operative site. There are mild degenerative changes of the right hip and mild generative changes of the sacroiliac joints. Mild to moderate degenerative changes are present in the lower lumbar spine. CONCLUSION: Postoperative changes as described above. Dictated by: Kaycee South M.D. on 11/27/2017 at 13:20 Electronically approved by: Kaycee South M.D. on 11/27/2017 at 13:20
[2017-11-27] MEDS ORDERED: CEFAZOLIN SOD 1 GM/NS 50ML 50 ML IV SCH (14:00)
--- NOTE | 2017-11-27 14:11 | Operative Report ---
DATE OF PROCEDURE: November 27, 2017 NAILING MACHINE OPERATOR: Fermin Biswas PA-C The patient was brought to the operating room for induction of anesthesia. Throughout this case, my PA's assistance was necessary for retraction of soft tissue and positioning of the extremity. This allows for efficient and technically successful execution of the operation and is considered medically necessary. PREOPERATIVE DIAGNOSIS: End-stage avascular necrosis, left hip. POSTOPERATIVE DIAGNOSIS: End-stage avascular necrosis, left hip. PROCEDURE: Left total hip arthroplasty with acetabular reconstruction. INDICATIONS: The patient is a 77-year-old lady who has severe avascular necrosis of her left hip. She has complete erosion of her femoral head. This has eroded through the roof of her acetabulum. The findings and options have been discussed. We plan on a left total hip replacement with acetabular reconstruction. The risks and benefits have been explained. She states she understands and wishes to proceed. DESCRIPTION OF PROCEDURE: The patient was brought to the operating room and placed under general anesthetic. She received prophylactic antibiotics and tranexamic acid in the holding area. She was positioned in the right lateral decubitus position. Her left hip was prepped and draped in a sterile manner. A preoperative time out was performed. A posterior approach was made to the left hip. Care was taken to avoid injury to the sciatic nerve. Hemostasis was obtained with electrocautery. The posterior capsule was released. The hip was brought up into flexion and internal rotation. The remainder of the femoral head and neck were resected. Acetabular retractors were placed. A large amount of inflamed synovium was excised. The roof of the acetabulum was noted to be eroded. This was decorticated with a combination of a 44-mm reamer and a Hung elevator. The true floor of the acetabulum was established. The socket was reamed to 51 mm. The socket was medialized a slight bit. This allowed better coverage. A Niko Biomet 52 mm outer diameter OsseoTi socket was then impacted into place. A relatively secure fixation was obtained. The fixation was augmented with two 25-mm cancellous screws placed into the ilium. These had good purchase in sclerotic bone. Cancellous autograft bone was taken from the remnant of the femoral head and the proximal femur. This was impaction grafted to establish a better dome of the socket. This provided approximately 20% of uncoverage of the socket. The socket felt to be good and stable. A highly cross-link polyethylene liner was then impacted into place. This had a 36 mm inner diameter. Attention was then directed towards the proximal femur. The Taperloc broaches were impacted. A size 11 Taperloc stem had good rotational stability. Trial reductions were performed. The hip was quite tight with a standard head. I elected to use a -6 head. There were good range of motion without impingement and good stability with a -6 head. The trial implants were removed. The hip was thoroughly irrigated with a pulsatile lavage on numerous occasions throughout the case. A 100 mL premixed pericapsular YAEL injection was placed into the soft tissue. The implants were seated, and a 36-mm ceramic head was seated onto the stem. A final reduction was performed. The remnant of the posterior capsule was repaired with #2 Ethibond. The gluteal fascia was closed with #2 Ethibond. The skin was closed subcuticular Vicryl and maryann. A sterile bandage was applied. The patient was returned to the supine position, extubated and then transported to the recovery room in stable condition. Blood loss was approximately 100 mL. At the end of the procedure, all needle and sponge counts were correct. Job#: [id number]
--- OUTSIDE RECORDS SUMMARY | 2017-11-27 18:01 | XMS REPORT | Clinical Summary ---
Author Author [facility]am [employer] Organization [employer] Address Unknown Phone Unavailable Care Team Providers Care Cafe Aide Name Role Phone AttMatthew rubi MD PCP [...] 01/06/2017 Multiple contusions; Coronary artery disease involving mash[place] coronary artery of mash[place] heart without angina pectoris; Essential hypertension; PVD [...] (promyelocytes, myelocytes, metamyelocytes) Specimen Performing Laboratory Blood [facility] DEPARTMENT OF PATHOLOGY AND [facility] MEDICINE [address] [place] [address] * Estimated GFR (01/06/2017 4:00 AM) Only [...] and Americans. Specimen Performing Laboratory Plasma specimen [facility] DEPARTMENT OF PATHOLOGY AND [address] [address] * Basic metabolic panel (01/06/2017 4:00 AM) [...] 10.2 mg/dL Specimen Performing Laboratory Plasma specimen [facility] DEPARTMENT OF PATHOLOGY AND [address] [address] * Thyroid stimulating hormone (01/02/2017 4:00 AM) Component Value Ref Range TSH 1.40 0.27 - 4.20 uIU/mL Specimen Performing Laboratory Plasma specimen [facility] DEPARTMENT OF PATHOLOGY AND [address] [address] * T4, free (01/02/2017 4:00 AM) Component Value Ref Range T4, free 1.3 0.9 - 1.7 ng/dL Specimen Performing Laboratory Plasma specimen [facility] DEPARTMENT PATHOLOGY AND [address] [address] * Lipid panel (01/02/2017 4:00 AM) Component [...] (>=200 mg/dL) Specimen Performing Laboratory Plasma specimen [facility] DEPARTMENT OF PATHOLOGY AND GENOMIC MEDICINE [address] [place] [address] * CT Pelvis Wo Contrast (01/02/2017 12:09 AM) Specimen Performing Laboratory [facility] [address] [place] [address] PELVIS WO CONTRAST CLINICAL HISTORY:left [...] granulomas. IMPRESSION: No acute fracture or dislocation. [facility]-[id number] Procedure Note Interface, Radiology Results Incoming - [...] granulomas. IMPRESSION: No acute fracture or dislocation. [facility]-[id number] * CT Cervical Spine Wo Contrast (01/01/2017 11:53 PM) Specimen Performing Laboratory [facility] [address] [place] [address] Narrative EXAMINATION:CT CERVICAL SPINE WO CONTRAST CLINICAL [...] as described above. No definite acute fracture [facility]-[id number] Procedure Note [facility], Radiology Results - 01/02/2017 12:02 AM [...] as described above. No definite acute fracture [facility]-[id number] * CT Head Wo Contrast (01/01/2017 11:52 PM) Specimen Performing Laboratory [facility] [address] [place] [address] Narrative Procedure:CT HEAD WO CONTRAST REFERRING PHYSICIAN:DILCIA [...] evidence of acute intracranial abnormality or hemorrhage. [facility]-[id number] Procedure Note Interface, Radiology Results Incoming - [...] evidence of acute intracranial abnormality or hemorrhage. [facility]-[id number] * XR Tibia Fibula 2 Vw Left (01/01/2017 11:44 PM) Specimen Performing Laboratory [facility] [address] [place] [address] Narrative Examination:XR TIBIA FIBULA 2 VW LEFT [...] then dedicated left ankle radiographs are recommended. [facility]-[id number] Procedure Note Interface, Radiology Results Incoming - [...] then dedicated left ankle radiographs are recommended. [facility]-[id number] * XR Pelvis 1 Or 2 Vw (01/01/2017 11:44 PM) Specimen Performing Laboratory [facility] [address] [employer] [address] Narrative Examination:XR PELVIS 1 OR 2 VW Clinical History: trauma fall Comparison: None. Findings: Single frontal view of the pelvis is obtained. There is severe joint space narrowing of the left hip. No acute fracture or dislocation is seen. The pelvic ring is intact. IMPRESSION: 1. No acute abnormality identified in the pelvis. [facility]-[id number] Procedure Note Interface, Radiology Results - 01/01/2017 11:57 PM CDT Examination: XR PELVIS 1 OR 2 VW Clinical History: trauma fall Comparison: None. Findings: Single frontal view of the pelvis is obtained. There is severe joint space narrowing of the left hip. No acute fracture or dislocation is seen. The pelvic ring is intact. IMPRESSION: 1. No acute abnormality identified in the pelvis. [facility]-[id number] * XR Lumbar Spine 2 Or 3 Vw (01/01/2017 11:43 PM) Specimen Performing Laboratory [facility] [address] [place] [address] Narrative EXAMINATION:XR LUMBAR SPINE 2 OR 3 [...] are degenerative changes of the left hip. [facility]-[id number] Procedure Note Interface, Radiology Results 01/01/2017 11:51 [...] are degenerative changes of the left hip. [facility]-[id number] * XR Hip 2-3 View Left (01/01/2017 11:43 PM) Specimen Performing Laboratory [facility] [address] [place] [address] Narrative Examination:XR HIP 2-3 VIEWS LEFT Clinical [...] degenerative joint disease of the left hip. [facility]-[id number] Procedure Note Interface, Radiology Results 01/01/2017 11:49 [...] degenerative joint disease of the left hip. [facility]-[id number] * XR Tibia Fibula 2 Vw Right (01/01/2017 11:42 PM) Specimen Performing Laboratory [facility] [address] [place] [address] Narrative Examination:XR TIBIA FIBULA 2 VW RIGHT Clinical History: trauma fall Comparison: None. Findings: 2 views of the right tibia and fibula are obtained. No acute fracture or dislocation is seen. The joint spaces are within normal limits. Soft tissues are unremarkable. IMPRESSION: 1. No acute abnormality identified in the right tibia and fibula. [facility]-[id number] Procedure Note Interface, Radiology Results Incoming - [...] identified in the right tibia and fibula. [facility]-[id number] after 11/26/2016 Insurance Payer Benefit Subscriber ID Type Phone Address Plan / Group MEDICARE MEDICARE xxxxxxxxxx Medicare [place], [place] PART A AND B AARP AARP xxxxxxxxxxx Commercial SUPPLEMENT Work: [address] [place] [address] Home:
[2017-11-27 18:08] VITALS: BP 148/62
[2017-11-27] MEDS ORDERED: PROPOFOL IV EMULSION 10 MG/ML 20 ML VIAL ONE (18:09)
[2017-11-27] MEDS ORDERED: LIDOCAINE HCL 2% LOCAL INJ 5 ML SDV VIAL INJ ONE (18:09)
[2017-11-27] MEDS ORDERED: ACETAMINOPHEN 1000 MG/100 ML IV ONE (18:09)
[2017-11-27] MEDS ORDERED: DESFLURANE 240 ML BTL INH ONE (18:09)
[2017-11-27] MEDS ORDERED: LABETALOL HCL 5 MG/ML 20ML VIAL ONE (18:09)
[2017-11-27] MEDS ORDERED: DEXAMETHASONE SOD PHOS INJ 4 MG/ML VIAL ONE (18:09)
[2017-11-27] MEDS ORDERED: ROCURONIUM BROMIDE 10 MG/ML 5ML VIAL ONE (18:09)
[2017-11-27] MEDS ORDERED: ONDANSETRON HCL INJ 2 MG/ML VIAL ONE (18:09)
[2017-11-27] MEDS ORDERED: GLYCOPYRROLATE INJ 1MG/ 5 ML SYR ONE (18:09)
[2017-11-27] MEDS ORDERED: NEOSTIGMINE 5 MG/5ML SYR ONE (18:09)
[2017-11-27] MEDS: CEFAZOLIN SOD 1 GM VIAL IV SCH (18:19)
[2017-11-27] MEDS: ASPIRIN 325 MG TAB PO SCH (18:19)
[2017-11-27] MEDS: CELECOXIB 100 MG CAP PO SCH (18:20)
[2017-11-27 18:30] VITALS: BP 148/62
[2017-11-27 18:31] VITALS: BP 148/62
[2017-11-27] MEDS ORDERED: KETAMINE HCL INJ 50 MG/ML 10 ML VIAL ONE (18:32)
[2017-11-27] MEDS ORDERED: MIDAZOLAM HCL 2 MG/2 ML VIAL ONE (18:32)
[2017-11-27 20:00] VITALS: BP 130/59
[2017-11-27] MEDS ORDERED: ZOLPIDEM TARTRATE 5 MG TAB PO PRN (21:00)
[2017-11-28] VITALS: BP 124/59
[2017-11-28] MEDS: ACETAMINOPHEN 1000 MG/100 ML IV SCH ×2 (00:20→05:46)
[2017-11-28] MEDS: CEFAZOLIN SOD 1 GM VIAL IV SCH ×2 (00:59→08:22)
[2017-11-28 01:13] VITALS: BP 130/59
[2017-11-28] MEDS: HYDROCODONE/APAP 7.5MG-325MG 1 EA TAB PO PRN ×3 (03:00→14:20)
[2017-11-28 04:00] VITALS: BP 137/62
[2017-11-28] MEDS: SODIUM CHLORIDE 0.9% 1000ML 1,000 ML IV SCH (05:48)
[2017-11-28 07:30] VITALS: BP 137/62
[2017-11-28 07:55] VITALS: BP 139/60
[2017-11-28 08:06] LABS: HEMATOCRIT 26.4 % (34.2-44.1); HEMOGLOBIN 8.6 g/dL (12.0-16.0)
[2017-11-28] MEDS: CELECOXIB 100 MG CAP PO SCH (08:22)
[2017-11-28] MEDS: ASPIRIN 325 MG TAB PO SCH (08:22)
[2017-11-28] MEDS ORDERED: ACETAMINOPHEN 1000 MG/100 ML IV PRN (11:00)
[2017-11-28] MEDS ORDERED: HYOSCYAMINE 0.125 MG TAB PO PRN (11:15)
[2017-11-28] MEDS ORDERED: NON-FORMULARY MEDICATION (Esomeprazole Mag Trihydrate (Nexium) 40 MG) PO SCH (11:15)
[2017-11-28 11:35] VITALS: BP 138/62
[2017-11-28] MEDS ORDERED: ASPIRIN325 MG PO (11:58)
[2017-11-28] MEDS ORDERED: PANTOPRAZOLE SOD 40 MG TABEC PO SCH (12:00)
[2017-11-28] MEDS ORDERED: CELECOXIB 200 MG CAP PO SCH (17:00)
== END 2017-11-28 15:01 | disposition home or self-care (01) | DRG 470 ==
LOC: OR 10:00 → MED/SURG 17:58
PROVIDERS: ADMIT Specialist; ATTEND Specialist
PROC: 0QU507Z Supplement Left Acetabulum with Autologous Tissue Substitute, Open Approach (ICD-10-PCS; 2017-11-27)
PROC: 0SRB04A Replacement of Left Hip Joint with Ceramic on Polyethylene Synthetic Substitute, Uncemented, Open Approach (ICD-10-PCS; principal; 2017-11-27 09:00)
DX: M87.052 Idiopathic aseptic necrosis of left femur (principal); I10 Essential (primary) hypertension; E03.9 Hypothyroidism, unspecified; I25.10 Atherosclerotic heart disease of native coronary artery without angina pectoris
CPT/HCPCS: 36415; 72170; 85014; 85018; 85025; 86850; 86900; 86920; 97139; C1713; J0171; J0690; J1100; J1885; J2001; J2250; J2405; J2795; J7030

== ENCOUNTER → 2018-08-28 | Outpatient (CLI) | payer MEDICARE ==
[~2018-08-28] MED LIST changes: +ASPIRIN325 MG PO; -BACITRACIN 50,000 UNIT VIAL ONE; -BUPIVACAINE 7.5MG/ML /DEXTROSE 82.5MG/ML 2 ML AMP INJ ONE; -CEFAZOLIN SOD 2 GM/D5W 50ML 50 ML IV ONE; -CELECOXIB 200 MG CAP ONE; -DEXAMETHASONE SOD PHOS 10 MG/1 ML VIAL ONE; -GABAPENTIN 300 MG CAP ONE; +IOPAMIDOL 200 MG/ML 20 ML VIAL IT ONE; +LIDOCAINE HCL 1% LOCAL INJ 20 ML VIAL ONE; -MUPIROCIN 2% OINT 22 GM TUBE ONE; -ROPIVACAINE 246.25 MG, EPINEPHRINE HCL 1:1000 0.5 MG, CLONIDINE HCL 0.08 MG, KETOROLAC ... INJ ONE; -TRANEXAMIC ACID 1,000 MG/10 ML ML ONE
[2018-08-28 09:14] LABS: INR 0.87; PROTHROMBIN TIME 12.6 seconds (11.9-14.5)
[2018-08-28 09:15] LABS: PARTIAL THROMBOPLASTIN TIME 29.2 seconds (23.8-35.5)
--- NOTE | 2018-08-28 12:15 | Diagnostic Imaging Report ---
Date and Time: Procedure: Lumbar spine myelogram piercing mill operator: Dr. Meléndez Pre-operative diagnosis: Low back pain with radiculopathy Post-operative diagnosis: Low back pain with radiculopathy Conscious Sedation: None Additional Medications: Lidocaine 1% for local anesthesia Fluoroscopy time: 1.5 minutes Frontal Air Kerma: 165.6 mGy Contrast used: 14 cc Isovue-200 Estimated blood loss: Minimal Blood products administered: None Specimens: None Implants: None Complications: No immediate Disposition: To CT scan DISCUSSION: Informed consent was obtained and documented in the medical record after discussion of risks and benefits. Patient was placed in the prone position on the fluoroscopic table. The lower back was prepped and draped in the standard sterile fashion. A suitable percutaneous approach to the thecal sac at the L5-S1 level was identified and the overlying skin was marked. 1% lidocaine was infiltrated into the skin and subcutaneous tissues for local anesthesia. Then under intermittent fluoroscopic guidance, a 22-gauge spinal needle was advanced to the thecal sac. Scant pink CSF was returned, though no CSF was noted to reach the hub of the needle. The needle was removed. 1% lidocaine was infiltrated into the skin and subcutaneous tissues overlying the L4-L5 level. The spinal needle was again advanced into the thecal sac under intermittent fluoroscopic guidance, again with scant return of pink CSF. The needle was removed. The needle was reintroduced to the thecal sac at the L5-S1 level, again with return of scant CSF. The patient was then rolled into the left lateral decubitus position, which resulted in increased CSF flow from the hub of the needle. Once clear CSF return was confirmed, a total of 14 cc Isovue-200 were slowly injected into the thecal sac under fluoroscopic guidance. The needle was removed and sterile dressings were applied. Multiple fluoroscopic spot images were obtained. The patient tolerated the procedure without immediate complication. FINDINGS: Partial myelographic block at the level of L3-L4, likely related to facet arthropathy/ligamentum flavum hypertrophy, possibly with superimposed disc protrusion. IMPRESSION: Successful lumbar spine myelogram, with injection of 14 cc of Isovue-200 for purposes of contrast enhancement for CT lumbar spine, subsequently performed and separately reported. Signed by: Dr. Cam Meléndez M.D. on 08/28/2018 12:11 PM
--- NOTE | 2018-08-28 12:22 | Diagnostic Imaging Report ---
CT LUMBAR SPINE W HISTORY: Lumbar spondylosis with radiculopathy COMPARISON: Lumbar spine radiographs 08/28/2018 TECHNIQUE: Axial CT images of the lumbar spine were obtained after the administration of intrathecal contrast. Coronal and sagittal reconstructions obtained from the axial data. One or more of the following dose reduction techniques were used: Automated exposure control, adjustment of the mA and/or kV according to patient size, and/or utilization of iterative reconstruction technique. DISCUSSION: Mild bone demineralization limits evaluation. There are 5 nonrib-bearing lumbar vertebral bodies. L5 is sacralized with a left pseudoarthrosis. Postsurgical changes related to posterior fusion at T12-L1, via transpedicular screws, with left hemilaminectomy are noted. Associated hardware streak artifact obscures some details. The right L1 transpedicular screw is just lateral to the right L1 pedicle. Lumbar lordosis is preserved. Mild lumbar levoscoliosis is centered at approximately L2-L3. Moderate T12 vertebral compression deformity (with up to 50% loss of vertebral body height anteriorly) appears overall well corticated. There is no significant fracture retropulsion. The prevertebral and paravertebral soft tissues are grossly unremarkable. This fracture is likely chronic. There are associated advanced spondylotic changes at T12-L1. No definite additional acute fracture or compression deformity is seen. The thecal sac is well opacified. The conus terminates at approximately L1, which is within normal limits. The visualized lower spinal cord is normal in morphology. There is cauda equina crowding at L3-L4. The cauda equina is otherwise normal in morphology. No suspicious thecal sac filling defects are seen. There is paraspinal muscle atrophy in the lower lumbar spine. Posterior incision changes are noted. Otherwise, the paravertebral and paraspinal soft tissues are unremarkable. Underlying mild to moderate multilevel spondylosis is present (above and below the T12-L1 level). There are mild to moderate degenerative changes in the bilateral sacroiliac joints. T10-T11: Mild bilateral foraminal stenoses due to disc bulge and facet arthrosis. No significant canal stenosis. T11-T12: Mild bilateral foraminal stenoses due to disc bulge and facet arthrosis. No significant canal stenosis. T12-L1: There is retrolisthesis of T12 on L1. Mild canal stenosis due to posterior disc osteophyte complex and ligamentum flavum thickening. Mild to moderate right and moderate left foraminal stenoses due to the retrolisthesis, disc bulge, and facet arthrosis. L1-L2: There is minimal retrolisthesis of L1 and L2. Mild to moderate canal stenosis due to disc bulge and ligamentum flavum thickening. Moderate right and mild left foraminal stenoses due to disc bulge and facet arthrosis. L2-L3: There is minimal retrolisthesis of L2 on L3. Mild canal stenosis due to disc bulge and ligamentum flavum thickening. Moderate right and mild left foraminal stenoses due to disc bulge and facet arthrosis. L3-L4: Grade 1 anterolisthesis of L3 on L4 with advanced bilateral facet arthrosis. Severe canal stenosis due to uncovered disc bulge and ligamentum flavum thickening. Both lateral recesses are effaced. Moderate right and mild to moderate left foraminal stenoses due to uncovered disc bulge and facet arthrosis. L4-L5: Grade 1 anterolisthesis of L4 on L5 with advanced bilateral facet arthrosis, left greater then mild canal stenosis due to uncovered disc bulge and ligamentum flavum thickening. Mild right and moderate to severe left foraminal stenoses due to uncovered disc bulge and facet arthrosis. L5-S1: No gross canal or foraminal stenosis. The partially visualized bladder is distended aortoiliac calcified atherosclerosis is present. IMPRESSION: 1. Posterior fusion changes at T12-L1 with left hemilaminectomy. The right L1 transpedicular screw is just lateral to the right L1 pedicle. 2. Moderate T12 vertebral compression deformity is likely chronic. No significant retropulsion. Associated advanced T12-L1 spondylosis with mild lumbar levoscoliosis centered at L2-L3. 3. Otherwise, no acute osseous abnormalities. 4. Mild to moderate multilevel spondylosis above and below the T12-L1 level. 5. Grade 1 anterolisthesis of L3 on L4 and L4 on L5 due to advanced bilateral facet arthrosis. 6. Multilevel degenerative canal stenoses - severe at L3-L4. 7. Multilevel degenerative foraminal stenoses - moderate on the left at T12-L1; moderate on the right from L1-L2 to L3-L4; moderate to severe on the left at L4-L5. Signed by: Dr. Gigi Reyes M.D. on 08/28/2018 12:19 PM
== END ==
LOC: DX 08:08
PROVIDERS: ATTEND Specialist
DX: M47.26 Other spondylosis with radiculopathy, lumbar region (principal)
CPT/HCPCS: 36415; 72132; 85049; 85610; 85730; J2001; Q9967; 62304

== ENCOUNTER → 2018-10-11 | Outpatient (RCR) | payer MEDICARE ==
[~2018-10-11] MED LIST changes: -IOPAMIDOL 200 MG/ML 20 ML VIAL IT ONE; -LIDOCAINE HCL 1% LOCAL INJ 20 ML VIAL ONE
== END ==
LOC: PT 10-04 14:11
PROVIDERS: ATTEND Specialist
DX: M96.1 Postlaminectomy syndrome, not elsewhere classified (principal); M47.26 Other spondylosis with radiculopathy, lumbar region; M54.5 Low back pain; M62.81 Muscle weakness (generalized); R26.9 Unspecified abnormalities of gait and mobility

== ENCOUNTER → 2019-06-11 | Outpatient (CLI) | payer MEDICARE ==
--- NOTE | 2019-06-11 17:47 | Diagnostic Imaging Report ---
EXAMINATION: CERVICAL 3 VIEWS INDICATION: Neck pain, left arm numbness COMPARISON: Report of cervical spine CT of 10/20/2014 (images not available for comparison) FINDINGS: AP and lateral images of the cervical spine were obtained. No acute fracture. There is exaggerated cervical lordosis. Minimal anterolisthesis at C4-5. Moderate multilevel degenerative changes with osteophyte formation and uncovertebral joint degeneration. The prevertebral soft tissues are normal in thickness. The partially visualized lung apices are clear. Partially visualized sternotomy wires and pacemaker leads. IMPRESSION: No acute osseous injury. Moderate multilevel degenerative changes. Signed by: Christiano Pepper MD on 06/11/2019 5:44 PM
== END ==
LOC: RAD 16:33
PROVIDERS: ATTEND Family Medicine
DX: M54.2 Cervicalgia (principal)
CPT/HCPCS: 72040